=== PATIENT | female | born 1975 | race African-American/Black ===

== ENCOUNTER 2019-09-29 19:05 | Observation (INO) | payer OTHER ==
[~2019-09-29 19:05] MED LIST: Iopamidol-370 76% 500 ML 1 ML ONE
[2019-09-29] MEDS ORDERED: Ondansetron PF 4 MG/2 ML Vial ONE ×2 (19:14→22:22)
[2019-09-29] MEDS ORDERED: Fentanyl 100 MCG/2 ML VIAL ONE ×2 (19:14→20:04)
[2019-09-29 19:28] LABS: #Basophils 0.1 thou/uL (0.0-0.2); #Eosinphils 0.1 thou/uL (0.0-0.7); #Lymphocytes 3.7 thou/uL (1.20-3.40); #Monocytes 0.6 thou/uL (0.11-0.59); %Eosinophils 0.7 % (0.0-10.0); %Lymphocytes 35.3 % (21.0-51.0); %Monocytes 5.4 % (0.0-10.0); %Neutrophils 57.5 % (42.0-75.0); Hemoglobin 13.5 g/dL (12.0-16.0); Mean Corpuscular HGB CONC 33.5 g/dL (32.0-36.0); Mean Corpuscular Hemoglobin 30.1 pg (27.0-31.0); Mean Corpuscular Volume 89.7 fL (78.0-98.0); Mean Platelet Volume 8.8 fL (7.4-10.4); Platelet Count 213 thou/uL (130-400); RBC Distribution Width 12.7 % (11.5-14.5); Red Blood Cell (RBC) Count 4.49 mill/uL (4.20-5.40); White Blood Cell (WBC) Count 10.5 thou/uL (4.8-10.8)
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
[2019-09-29 19:34] LABS: INR-International Normal Ratio 0.9; Prothrombin Time 11.7 SEC (12.0-14.7)
[2019-09-29 19:35] LABS: PTT 17.8 SEC (22.9-36.1)
[2019-09-29 19:50] LABS: BHCG - Serum Negative (NEGATIVE); Pregs Control Background? CLEAR/WHITE (CLR/WHITE); Pregs Control Bar Appear? YES (CONTROL BAR)
[2019-09-29 19:51] LABS: ALT (SGPT) 21 U/L (8-55); AST (SGOT) 29 U/L (5-34); Albumin 4.1 g/dL (3.5-5.0); Alkaline Phosphatase 85 U/L (40-110); Anion Gap 12 mmol/L (10-20); BUN (Urea Nitrogen) 12 mg/dL (7.0-18.7); Bilirubin, Total 0.2 mg/dL (0.2-1.2); Calc. Creatinine Clearance 0 mL/min (70-130); Calcium 9.2 mg/dL (7.8-10.44); Carbon Dioxide 23 mmol/L (22-29); Chloride 107 mmol/L (98-107); Estimated GFR-MDRD 83; Globulin 3.7 g/dL (2.4-3.5); Glucose 96 mg/dL (70-105); Lipase 63 U/L (8-78); Potassium 3.6 mmol/L (3.5-5.1); Protein, Total 7.8 g/dL (6.0-8.3); Sodium 138 mmol/L (136-145)
[2019-09-29] MEDS ORDERED: Adacel (T-DAP) 0.5 ML SYRINGE ONE (19:55)
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
[2019-09-29] MEDS ORDERED: Lidocaine 1% w/Epinephrine 1:100K 20 ML VIAL ONE (21:34)
[2019-09-29] MEDS ORDERED: HYDROcodone/Acetaminophen 7.5/325 mg Tablet ONE (21:34)
[2019-09-29] MEDS ORDERED: Ketorolac Tromethamine 30 MG/ML VIAL ONE (22:28)
[2019-09-29] MEDS ORDERED: Bacitracin 1 PK ONE (22:32)
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
[2019-09-30] MEDS ORDERED: Acetaminophen 500 MG TAB ONE (02:43)
[2019-09-30] MEDS ORDERED: traMADol HCl 50 MG TAB ONE (02:43)
[2019-09-30] MEDS ORDERED: hydrALAZINE 20 MG/ML VIAL SLOW IVP PRN (02:56)
[2019-09-30] MEDS ORDERED: Dextrose 50% Abboject 50 ML SYRINGE SLOW IVP PRN (02:56)
[2019-09-30] MEDS ORDERED: Dextrose 5% in Water 1,000 ML IV PRN (02:56)
[2019-09-30] MEDS ORDERED: traMADol HCl 50 MG TAB PO PRN (03:00)
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
[2019-09-30] MEDS: traMADol HCl 50 MG TAB PO PRN ×2 (04:47→11:01)
[2019-09-30 05:14] VITALS: BMI 31.6
[2019-09-30] MEDS: Cyclobenzaprine 10 MG TAB PO PRN ×3 (05:53→20:58)
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
[2019-09-30] MEDS: Ibuprofen 600 MG TAB PO SCH ×3 (05:58→20:59)
[2019-09-30] MEDS: Polyethylene Glycol 3350 17 GM Packet PO SCH (08:59)
[2019-09-30] MEDS: Senokot S 8.6-50 MG TAB PO SCH ×2 (08:59→20:59)
[2019-09-30] MEDS: Rivaroxaban 10 MG TAB PO SCH (09:00)
[2019-09-30] MEDS: Acetaminophen 500 MG TAB PO SCH ×4 (09:00→23:27)
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
[2019-09-30] MEDS: Ondansetron PF 4 MG/2 ML Vial IVP PRN ×2 (14:37→15:16)
[2019-09-30] MEDS ORDERED: Scopolamine 1.5 mg/72 hour Patch TD SCH (15:00)
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
[2019-09-30] MEDS: traMADol HCl 50 MG TAB PO SCH ×2 (18:27→23:27)
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
[2019-10-01] MEDS: Cyclobenzaprine 10 MG TAB PO PRN ×2 (04:28→13:33)
[2019-10-01] MEDS: Acetaminophen 500 MG TAB PO SCH ×2 (06:05→10:58)
[2019-10-01] MEDS: Ibuprofen 600 MG TAB PO SCH ×2 (06:05→13:33)
[2019-10-01] MEDS: traMADol HCl 50 MG TAB PO SCH ×2 (06:06→10:57)
[2019-10-01] MEDS: Senokot S 8.6-50 MG TAB PO SCH (09:50)
[2019-10-01] MEDS: Rivaroxaban 10 MG TAB PO SCH (09:50)
[2019-10-01] MEDS: Polyethylene Glycol 3350 17 GM Packet PO SCH (09:50)
[2019-10-01 11:24] VITALS: BP 116/77; TEMP 98.6
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
== END 2019-10-01 14:00 | disposition home or self-care (01) ==
LOC: ERS 19:05 → SURG A 09-30 03:01
PROVIDERS: ADMIT Orthopaedic Surgery; ATTEND Orthopaedic Surgery
DX: S52.511A Displaced fracture of right radial styloid process, initial encounter for closed fracture (principal); S82.141A Displaced bicondylar fracture of right tibia, initial encounter for closed fracture; S01.112A Laceration without foreign body of left eyelid and periocular area, initial encounter; S20.212A Contusion of left front wall of thorax, initial encounter; S83.411A Sprain of medial collateral ligament of right knee, initial encounter; S00.03XA Contusion of scalp, initial encounter; S06.9X9A Unspecified intracranial injury with loss of consciousness of unspecified duration, initial encounter; R40.2411 Glasgow coma scale score 13-15, in the field [EMT or ambulance]; G89.11 Acute pain due to trauma; G43.909 Migraine, unspecified, not intractable, without status migrainosus; Z79.899 Other long term (current) drug therapy; Z88.0 Allergy status to penicillin; Z88.2 Allergy status to sulfonamides; Z88.8 Allergy status to other drugs, medicaments and biological substances; V86.59XA Driver of other special all-terrain or other off-road motor vehicle injured in nontraffic accident, initial encounter
CPT/HCPCS: 12011; 36415; 70450; 70486; 71045; 71260; 72125; 74177; 80053; 83605; 83690; 84703; 85025; 85610; 85730; 86850; 86900; 86901; 90471; 90715; 94760; 96372; 96374; 96375; 96376; G0378; G0390; J0690; J1885; J2405; J3010; Q9967